=== PATIENT | female | born 1965 | race African-American/Black ===

== ENCOUNTER 2016-10-26 05:35 | Day surgery (SDC) | payer OTHER ==
[~2016-10-26] VITALS: Ht 170.2 cm; Wt 92.1 kg
--- NOTE | ~2016-10-26 | O ---
[facility] [place] [address] OPERATIVE REPORT Name: MARIUSZ PARDO Room #: 150-3 [facility] M..#: [id number] Admission: 10/26/16 Attend Phys: Ammon Luna MD Discharge: Date of : 63 Report #: [id number] THIS REPORT FOR: //name// CC: FAM unknown Ammon Luna DATE OF SERVICE: 10/26/2016 PREOPERATIVE DIAGNOSIS: Left posterior tibial tendon dysfunction. POSTOPERATIVE DIAGNOSIS: Left posterior tibial tendon dysfunction. PROCEDURE: Left posterior tibial tendon reconstruction with flexor digitorum longus tendon transfer and calcaneal osteotomy. SURGEON: Ammon Luna MD ANESTHESIA: General. ESTIMATED BLOOD LOSS: Minimal. DRAINS: No drains. TOURNIQUET TIME: One hour. MARKETING WRITER: NICHOLE Greer DESCRIPTION OF PROCEDURE: The patient was brought to the operating room where she was placed under general anesthesia. Once under adequate general anesthesia, her left lower extremity was prepped and draped in sterile manner. The extremity was elevated, exsanguinated, tourniquet placed to 300 mmHg. A lateral incision overlying the posterior tuberosity of the calcaneus was then made. This dissected down through the soft tissue to the lateral wall of the calcaneus. This was then exposed elevating the periosteum and a sagittal saw was used to perform an osteotomy of the tuberosity. This was then translated laterally approximately 8-mm, then fixed into place with a single 7.3 mm cannulated screw. Excellent fixation and alignment was achieved in this manner as verified under fluoroscopy. A bone tamp was utilized to perform a "crush plasty" of the lateral wall of the calcaneus. This wound was then irrigated copiously and closed with 2-0 Vicryl in the subcutaneous tissues and jennifer for the skin. We then proceeded medially and a 5-cm incision was made over the insertion of the posterior tibial tendon onto the tarsal navicular. There was abundant inflammatory fluid, which did emanate from the wound. In the floor of the posterior tibial tendon sheath, the flexor digitorum longus tendon was identified and subsequently followed to the master knot of Luis Armando where it was incised and tagged for transfer. A drill hole was then placed through the [facility] [address] [place] [address] OPERATIVE REPORT Name: MARIUSZ PARDO Room #: 150-3 [facility]..#: [id number] Admission: 10/26/16 Attend Phys: Ammon Luna MD Discharge: Date of : 63 Report #: [id number] tarsal navicular with subsequently transfer of the tendon with a suture passer. The flexor digitorum longus tendon was then fixed into place with a Bio-Tenodesis screw and subsequent augmentation with multiple FiberWire sutures periosteum of the tarsal navicular as well as the posterior tibial tendon. The wound was then irrigated copiously and closed with 0 FiberWire for the tendon sheath and 2-0 Vicryl in subcutaneous tissues and jennifer were used for the skin. The wounds were dressed with Xeroform, 4 x 4s, and sterile soft compressive dressing was placed. Tourniquet was let down at approximately 1 hour. Toes were pink and warm with good capillary refill. There were no complications from the procedure. The patient tolerated the procedure well and went to the recovery room without incident. The patient is placed into a short-leg cast prior to returning to the recovery room. By: 1325 1344 Ammon Luna MD /nt
--- NOTE | ~2016-10-26 | EKG ---
[place] [address] [place] [address] ELECTROCARDIOGRAM REPORT Name: MARIUSZ PARDO Room #: [facility].#: [id number] Admission: 10/26/16 Attend Phys: Ammon Luna MD Discharge: 10/26/16 Date of : 63 Report #: [id number] THIS REPORT FOR: //name// [facility] Test Date: 2016-10-26 Test Time: 11:05:30 Pat Name: MARIUSZ PARDO Department: Room: 150 3 Gender: F Physician Advisor: EVANS : [id number] Requested By: Ammon Luna Order Number: [id number] MD: Dwain Stern Measurements Intervals [place] Rate: 49 P: 48 ID: [id number] QRS: 25 QRSD: 90 T: 38 QT: 495 QTc: 447 Interpretive Statements Sinus bradycardia Borderline prolonged ID interval No previous ECG available for comparison Electronically Signed On 10-27-2016 14:06:56 CDT by Dwain Stern [email or web address] <ELECTRONICALLY SIGNED> By: Dwain Stern MD 10/27/16 1406 1105 1105 Dwain Stern MD /PETROS
[~2016-10-26 05:35] MED LIST: ASPIR 8181 MG PO; EPIPEN0.3 MG/0.3 IM; ESCITALOPRAM OX10 MG PO; IBUPROFEN 600600 M1 PO; LOPRESSOR50 PO; PREDNISONE 20 M20 M1 PO; VERAPAMIL E.R240 M1 PO
[2016-10-26 12:18] VITALS: BP 144/62
[2016-10-26] MEDS ORDERED: ASPIR-TRIN325 MG PO (13:15)
[2016-10-26] MEDS ORDERED: PERCOCET 7.5-31 EACH PO (13:15)
[2016-10-26 13:46] VITALS: BP 144/62
== END 2016-10-26 14:46 | disposition home or self-care (01) ==
LOC: TBA 05:35 → OR 05:35
DX: M76.822 Posterior tibial tendinitis, left leg (principal); M21.42 Flat foot [pes planus] (acquired), left foot; I10 Essential (primary) hypertension; Z79.82 Long term (current) use of aspirin; Z98.890 Other specified postprocedural states; Z79.899 Other long term (current) drug therapy
CPT/HCPCS: 50010; 50101; 50386; 50692; 50951; 51412; 53400; 53404; 55430; 56524; 56525; 56526; 57091; 62110; 62900; 64039; 65060; 70005